=== PATIENT | male | born 1950 | race Caucasian/White ===

== ENCOUNTER 2020-08-14 12:46 | Inpatient (IN) | payer MEDICARE ==
[~2020-08-14] VITALS: Ht 185.4 cm; Wt 71.2 kg
[2020-08-14 16:14] LABS: HEMATOCRIT. 49.9 % (42.0-52.0); MEAN CORPUSCULAR HEMOGLOBIN 29.6 pg (28.0-32.0); MEAN CORPUSCULAR VOLUME 86.6 fL (80.0-94.0); PLATELET 154 x1000/uL (130-400); RED BLOOD CELL COUNT 5.77 mill/uL (4.7-6.1); RED CELL DISTRIBUTION WIDTH 14.8 % (11.6-14.6)
[2020-08-14 16:20] LABS: CHLORIDE 108 mEq/L (98-107)
[2020-08-14 16:23] LABS: INR 1.1
[2020-08-14] MEDS ORDERED: CLONIDINE 0.1MG TABLET PO ONE (16:30)
[2020-08-14 16:35] LABS: CLARITY URINE CLOUDY (CLEAR); COLOR URINE YELLOW (YELLOW); KETONES URINE TRACE (NEGATIVE); LEUKOCYTE ESTERASE URINE TRACE (NEGATIVE); NITRITE URINE NEGATIVE (NEGATIVE); OCCULT BLOOD URINE TRACE (NEGATIVE); PROTEIN URINE 2+ (NEGATIVE); SPECIFIC GRAVITY URINE 1.024 (1.005-1.030)
[2020-08-14 17:03] LABS: *AMPHETAMINES SCREEN URINE NEGATIVE (NEGATIVE); *BARBITURATES SCREEN URINE NEGATIVE (NEGATIVE); *BENZODIAZEPINES SCREEN URINE NEGATIVE (NEGATIVE); *COCAINE SCREEN URINE NEGATIVE (NEGATIVE); METHADONE URINE SCREEN NEGATIVE (NEGATIVE); OPIATES URINE SCREEN NEGATIVE (NEGATIVE)
[2020-08-14 17:04] LABS: CANNABINOID URINE SCREEN PRESUMTIVE POSITIVE (NEGATIVE); PHENCYCLIDINE URINE SCREEN NEGATIVE (NEGATIVE)
[2020-08-14 17:15] LABS: PLATELET ESTIMATE NORMAL
[2020-08-14] MEDS ORDERED: FUROSEMIDE 20MG/2ML VIAL IVP ONE (17:15)
[2020-08-14] MEDS ORDERED: CEFTRIAXONE 1 G PREMIX 50 ML IV ONE (17:15)
[2020-08-14 21:30] VITALS: BP 157/99
[2020-08-14] MEDS ORDERED: DIPHENHYDRAMINE 50MG/ML VIAL IV PRN (21:30)
[2020-08-14] MEDS ORDERED: AMLODIPINE 10MG TABLET PO SCH (21:30)
[2020-08-14] MEDS ORDERED: DOCUSATE SODIUM 100MG CAPSULE PO PRN (21:30)
[2020-08-14] MEDS ORDERED: ONDANSETRON HCL 4MG/2ML INJ IV PRN (21:30)
[2020-08-14] MEDS ORDERED: ACETAMINOPHEN 650MG/20.3ML UDC GT PRN ×2 (21:30)
[2020-08-14] MEDS ORDERED: MAGNESIUM/ALUMINUM HYDROXIDE/SIMETHICONE 30ML UDC PO PRN (21:30)
[2020-08-14] MEDS ORDERED: ACETAMINOPHEN 650MG SUPP PR PRN ×2 (21:30)
[2020-08-14] MEDS ORDERED: ACETAMINOPHEN 325MG TABLET PO PRN ×2 (21:30)
[2020-08-14] MEDS: ENOXAPARIN 40MG/0.4ML SYR SUBCUT SCH (23:07)
[2020-08-14] MEDS: AMLODIPINE 10MG TABLET PO SCH (23:47)
[2020-08-15] VITALS (9 sets, daily range): BP systolic 125–191; BP diastolic 79–105
[2020-08-15 06:01] LABS: CHLORIDE 107 mEq/L (98-107)
[2020-08-15 06:08] LABS: LDL CHOLESTEROL 108 mg/dL (5-100)
[2020-08-15 06:10] LABS: HDL CHOLESTEROL 57 mg/dL (40-59)
[2020-08-15 06:12] LABS: BASOPHILS % 0.9 % (0.0-2.0); EOSINOPHILS % 0.5 % (0.0-5.0); HEMATOCRIT. 49.7 % (42.0-52.0); HEMOGLOBIN. 17.1 g/dL (14.0-18.0); LYMPHOCYTES % 15.6 % (20.0-50.0); MEAN CORPUSCULAR HEMOGLOBIN 29.9 pg (28.0-32.0); MEAN CORPUSCULAR VOLUME 86.6 fL (80.0-94.0); MEAN PLATELET VOLUME 9.4 fl (7.4-10.4); MONOCYTES % 6.9 % (2.0-8.0); NEUTROPHILS % 76.1 % (40.0-76.0); PLATELET 147 x1000/uL (130-400); RED BLOOD CELL COUNT 5.73 mill/uL (4.7-6.1); RED CELL DISTRIBUTION WIDTH 15.2 % (11.6-14.6)
[2020-08-15 07:20] LABS: T4 FREE 1.25 ng/dL (0.76-1.46)
[2020-08-15] MEDS ORDERED: AMLODIPINE 10MG TABLET PO SCH (09:00)
[2020-08-15] MEDS: ASPIRIN 81MG EC TABLET PO SCH (09:05)
[2020-08-15] MEDS: LISINOPRIL 20MG TABLET PO SCH (09:05)
[2020-08-15] MEDS: AMLODIPINE 10MG TABLET PO SCH (09:06)
[2020-08-15] MEDS: FUROSEMIDE 40MG TABLET PO SCH (09:07)
[2020-08-15] MEDS: NICOTINE 14MG PATCH TD SCH (09:07)
[2020-08-15] MEDS ORDERED: POTASSIUM CHLORIDE 20MEQ TABLET SR PO NR (10:45)
[2020-08-15] MEDS ORDERED: CEFTRIAXONE 1,000 MG in DEXTROSE 5% WATER 50 ML IV SCH (17:00)
[2020-08-15] MEDS: CEFTRIAXONE 1,000 MG in DEXTROSE 5% WATER 50 ML IV SCH (18:50)
[2020-08-15] MEDS: ENOXAPARIN 40MG/0.4ML SYR SUBCUT SCH (20:42)
[2020-08-16] VITALS (8 sets, daily range): BP systolic 121–169; BP diastolic 79–113
[2020-08-16 00:58] LABS: CREATINE KINASE MB FRACTION 2.1 ng/mL (0.5-3.6)
[2020-08-16 06:23] LABS: BASOPHILS % 0.7 % (0.0-2.0); EOSINOPHILS % 1.6 % (0.0-5.0); HEMATOCRIT. 52.1 % (42.0-52.0); HEMOGLOBIN. 17.7 g/dL (14.0-18.0); MEAN CORPUSCULAR HEMOGLOBIN 29.7 pg (28.0-32.0); MEAN CORPUSCULAR VOLUME 87.6 fL (80.0-94.0); MEAN PLATELET VOLUME 9.5 fl (7.4-10.4); MONOCYTES % 7.2 % (2.0-8.0); NEUTROPHILS % 70.5 % (40.0-76.0); PLATELET 159 x1000/uL (130-400); RED BLOOD CELL COUNT 5.95 mill/uL (4.7-6.1); RED CELL DISTRIBUTION WIDTH 15.1 % (11.6-14.6)
[2020-08-16 06:29] LABS: CHLORIDE 105 mEq/L (98-107)
[2020-08-16 06:38] LABS: CREATINE KINASE 231 IU/L (39-308)
[2020-08-16] MEDS: LISINOPRIL 20MG TABLET PO SCH (09:00)
[2020-08-16] MEDS: ASPIRIN 81MG EC TABLET PO SCH (09:00)
[2020-08-16] MEDS: AMLODIPINE 10MG TABLET PO SCH (09:00)
[2020-08-16] MEDS: FUROSEMIDE 40MG TABLET PO SCH (09:00)
[2020-08-16 09:04] LABS: VITAMIN B12 SERUM 932 pg/mL (211-911)
[2020-08-16] MEDS: NICOTINE 14MG PATCH TD SCH (09:27)
[2020-08-16] MEDS ORDERED: POTASSIUM CHLORIDE 20MEQ TABLET SR PO NR (12:15)
[2020-08-16] MEDS ORDERED: POTASSIUM CHLORIDE 20MEQ TABLET SR PO ONE (12:30)
[2020-08-16] MEDS: CEFTRIAXONE 1,000 MG in DEXTROSE 5% WATER 50 ML IV SCH (18:47)
[2020-08-16] MEDS: CARVEDILOL 3.125 MG TABLET PO SCH (20:28)
[2020-08-16] MEDS: ENOXAPARIN 40MG/0.4ML SYR SUBCUT SCH (20:28)
[2020-08-16] MEDS: METHYLPREDNISOLONE SOD SUCC 40 MG/ML VIAL IV SCH (22:10)
[2020-08-17] VITALS (10 sets, daily range): BP systolic 129–196; BP diastolic 83–127
[2020-08-17] MEDS: CLONIDINE 0.1MG TABLET PO PRN ×3 (00:28→23:39)
[2020-08-17] MEDS: ALBUTEROL (0.083%) 2.5MG/3ML NEB HHN SCH ×4 (01:43→21:22)
[2020-08-17] MEDS: METHYLPREDNISOLONE SOD SUCC 40 MG/ML VIAL IV SCH ×3 (06:34→22:04)
[2020-08-17] MEDS ORDERED: REGADENOSON 0.4 MG/5 ML IV NR (07:30)
[2020-08-17] MEDS ORDERED: REGADENOSON 0.4 MG/5 ML IV ONE (10:13)
[2020-08-17] MEDS: ASPIRIN 81MG EC TABLET PO SCH (12:16)
[2020-08-17] MEDS: NICOTINE 14MG PATCH TD SCH (12:16)
[2020-08-17] MEDS: LISINOPRIL 20MG TABLET PO SCH (12:17)
[2020-08-17] MEDS: FUROSEMIDE 40MG TABLET PO SCH (12:17)
[2020-08-17] MEDS: CARVEDILOL 3.125 MG TABLET PO SCH ×2 (12:17→20:23)
[2020-08-17] MEDS: BUDESONIDE 0.5MG/2ML NEB HHN SCH ×2 (15:10→21:22)
[2020-08-17] MEDS ORDERED: PULM50 HHN (18:44)
[2020-08-17] MEDS ORDERED: NICO-681 TD (18:44)
[2020-08-17] MEDS ORDERED: LISI-604 PO (18:44)
[2020-08-17] MEDS ORDERED: FURO40TA5 PO (18:44)
[2020-08-17] MEDS ORDERED: COR3 PO (18:44)
[2020-08-17] MEDS ORDERED: ALBU2.5V13 HHN (18:44)
[2020-08-17] MEDS ORDERED: DOCU-150 PO (18:44)
[2020-08-17] MEDS ORDERED: ASPI-1158 PO (18:44)
[2020-08-17] MEDS: CEFTRIAXONE 1,000 MG in DEXTROSE 5% WATER 50 ML IV SCH (18:46)
[2020-08-17] MEDS: ENOXAPARIN 40MG/0.4ML SYR SUBCUT SCH (20:22)
[2020-08-17] MEDS: AMLODIPINE 2.5MG TABLET PO SCH (20:49)
[2020-08-17] MEDS ORDERED: ATORVASTATIN CALCIUM 10MG TABLET PO SCH (21:00)
[2020-08-17] MEDS ORDERED: AMLO2.5T45 PO (22:39)
[2020-08-17] MEDS ORDERED: ATOR10TA PO (22:39)
[2020-08-18 00:28] VITALS: BP 164/98
[2020-08-18] MEDS: ALBUTEROL (0.083%) 2.5MG/3ML NEB HHN SCH ×2 (01:56→08:23)
[2020-08-18 04:00] VITALS: BP 158/83
[2020-08-18] MEDS: METHYLPREDNISOLONE SOD SUCC 40 MG/ML VIAL IV SCH (06:19)
[2020-08-18 07:41] VITALS: BP 158/93
[2020-08-18] MEDS: BUDESONIDE 0.5MG/2ML NEB HHN SCH (08:23)
[2020-08-18] MEDS: ASPIRIN 81MG EC TABLET PO SCH (08:56)
[2020-08-18] MEDS: FUROSEMIDE 40MG TABLET PO SCH (08:56)
[2020-08-18] MEDS: LISINOPRIL 20MG TABLET PO SCH (08:56)
[2020-08-18] MEDS: AMLODIPINE 2.5MG TABLET PO SCH (08:56)
[2020-08-18] MEDS: CARVEDILOL 3.125 MG TABLET PO SCH (08:56)
[2020-08-18] MEDS: NICOTINE 14MG PATCH TD SCH (08:57)
[2020-08-18 12:00] VITALS: BP 164/83
== END 2020-08-18 13:22 | DRG 291 ==
LOC: ER 12:46 → 6WST 17:53 → ENRESERV 20:23 → 6WST 08-15 01:07
PROVIDERS: ADMIT Family Medicine; ATTEND Family Medicine
DX: I11.0 Hypertensive heart disease with heart failure (principal); I63.9 Cerebral infarction, unspecified; I50.21 Acute systolic (congestive) heart failure; E87.2 Acidosis; N39.0 Urinary tract infection, site not specified; K21.9 Gastro-esophageal reflux disease without esophagitis; I42.9 Cardiomyopathy, unspecified; F12.90 Cannabis use, unspecified, uncomplicated; E78.5 Hyperlipidemia, unspecified; E87.6 Hypokalemia; F17.210 Nicotine dependence, cigarettes, uncomplicated; R29.6 Repeated falls; Z86.73 Personal history of transient ischemic attack (TIA), and cerebral infarction without residual deficits; Z91.81 History of falling; M47.816 Spondylosis without myelopathy or radiculopathy, lumbar region; M48.061 Spinal stenosis, lumbar region without neurogenic claudication; M48.02 Spinal stenosis, cervical region; M51.24 Other intervertebral disc displacement, thoracic region; R07.9 Chest pain, unspecified
CPT/HCPCS: 36415; 70551; 71045; 72141; 72146; 72148; 73070; 78452; 80048; 80053; 80061; 80305; 81003; 82550; 82553; 82607; 83036; 83605; 83735; 83880; 84439; 84443; 84484; 85025; 85379; 85651; 87426; 93005; 93017; 93306; 93880; 93970; 97110; 97162; 97166; 97530; 97535; 99285; A9500; C1893; J0696; J1650; J1940; J2785; J2920; J7040; J7060; J7626

== ENCOUNTER 2021-03-15 21:20 | Inpatient (IN) | payer MEDICARE, MEDICAID ==
[~2021-03-15] VITALS: Ht 185.4 cm; Wt 81.6 kg
[~2021-03-15 21:20] MED LIST: ALBU2.5V13 HHN; AMLO2.5T45 PO; ASPI-1406 PO; ATOR10TA PO; COR3 PO; DOCU-150 PO; FURO40TA5 PO; LISI20TA31 PO; NICO-681 TD; PULM50 HHN
[2021-03-15 22:00] VITALS: BP 134/85
[2021-03-15] MEDS: SODIUM CHLORIDE 0.9% 1,000 ML IV SCH (23:15)
[2021-03-16] MEDS: ALBUTEROL (0.083%) 2.5MG/3ML NEB HHN SCH ×4 (03:03→20:30)
[2021-03-16 05:00] VITALS: BP 157/95
[2021-03-16 07:00] LABS: PROTHROMBIN TIME 11.2 sec (9.6-11.0)
[2021-03-16 07:20] LABS: BASOPHILS % 0.6 % (0.0-2.0); EOSINOPHILS % 1.2 % (0.0-5.0); HEMATOCRIT. 44.7 % (42.0-52.0); HEMOGLOBIN. 15.5 g/dL (14.0-18.0); LYMPHOCYTES % 20.6 % (20.0-50.0); MEAN CORPUSCULAR HEMOGLOBIN 29.7 pg (28.0-32.0); MEAN PLATELET VOLUME 9.3 fl (7.4-10.4); MONOCYTES % 8.8 % (2.0-8.0); NEUTROPHILS % 68.8 % (40.0-76.0); PLATELET 147 x1000/uL (130-400); RED CELL DISTRIBUTION WIDTH 15.5 % (11.6-14.6)
[2021-03-16 07:33] LABS: CHLORIDE 107 mEq/L (98-107)
[2021-03-16 08:00] VITALS: BP 164/94
[2021-03-16] MEDS: BUDESONIDE 0.5MG/2ML NEB HHN SCH ×2 (08:06→20:30)
[2021-03-16] MEDS: ASPIRIN 81MG EC TABLET PO SCH (08:39)
[2021-03-16] MEDS: AMLODIPINE 2.5MG TABLET PO SCH (08:39)
[2021-03-16] MEDS: CARVEDILOL 3.125 MG TABLET PO SCH ×2 (08:39→21:53)
[2021-03-16] MEDS: LISINOPRIL 20MG TABLET PO SCH (08:40)
[2021-03-16] MEDS: FUROSEMIDE 40MG TABLET PO SCH (08:40)
[2021-03-16] MEDS: NICOTINE 14MG PATCH TD SCH (08:42)
[2021-03-16 12:00] VITALS: BP 148/94
[2021-03-16 20:00] VITALS: BP 180/105
[2021-03-16] MEDS: ATORVASTATIN CALCIUM 10MG TABLET PO SCH (20:40)
[2021-03-16] MEDS: CLONIDINE 0.1MG TABLET PO PRN (20:41)
[2021-03-17] VITALS: BP 155/90
[2021-03-17] MEDS: DEXAMETHASONE 4MG/ML 1ML VIAL IV SCH ×4 (00:32→17:09)
[2021-03-17] MEDS: ALBUTEROL (0.083%) 2.5MG/3ML NEB HHN SCH ×4 (02:24→23:11)
[2021-03-17] MEDS: CLONIDINE 0.1MG TABLET PO PRN ×2 (04:57→20:48)
[2021-03-17 05:23] VITALS: BP 163/92
[2021-03-17 08:00] VITALS: BP 160/98
[2021-03-17] MEDS: CARVEDILOL 3.125 MG TABLET PO SCH ×2 (09:09→20:48)
[2021-03-17] MEDS: LISINOPRIL 20MG TABLET PO SCH (09:10)
[2021-03-17] MEDS: ASPIRIN 81MG EC TABLET PO SCH (09:10)
[2021-03-17] MEDS: AMLODIPINE 2.5MG TABLET PO SCH (09:10)
[2021-03-17] MEDS: FUROSEMIDE 40MG TABLET PO SCH (09:10)
[2021-03-17] MEDS: BUDESONIDE 0.5MG/2ML NEB HHN SCH ×3 (09:18→23:12)
[2021-03-17 12:00] VITALS: BP 150/88
[2021-03-17] MEDS: NICOTINE 14MG PATCH TD SCH (12:02)
[2021-03-17] MEDS: SODIUM CHLORIDE 0.9% 1,000 ML IV SCH ×2 (12:02→12:11)
[2021-03-17 20:00] VITALS: BP 169/94
[2021-03-17 20:32] LABS: HEMATOCRIT. 47.9 % (42.0-52.0); HEMOGLOBIN. 16.4 g/dL (14.0-18.0); MEAN CORPUSCULAR HEMOGLOBIN 29.3 pg (28.0-32.0); MEAN CORPUSCULAR VOLUME 85.4 fL (80.0-94.0); MEAN PLATELET VOLUME 9.1 fl (7.4-10.4); PLATELET 182 x1000/uL (130-400); RED BLOOD CELL COUNT 5.61 mill/uL (4.7-6.1); RED CELL DISTRIBUTION WIDTH 15.4 % (11.6-14.6)
[2021-03-17 20:47] LABS: CHLORIDE 105 mEq/L (98-107)
[2021-03-17] MEDS: ATORVASTATIN CALCIUM 10MG TABLET PO SCH (20:48)
[2021-03-17 21:05] LABS: PLATELET ESTIMATE NORMAL
[2021-03-17] MEDS: CYCLOBENZAPRINE 10MG TABLET PO SCH (22:41)
[2021-03-18] VITALS: BP 154/89
[2021-03-18] MEDS: DEXAMETHASONE 4MG/ML 1ML VIAL IV SCH ×5 (00:10→23:40)
[2021-03-18] MEDS: SODIUM CHLORIDE 0.9% 1,000 ML IV SCH ×2 (00:18→18:26)
[2021-03-18] MEDS: ALBUTEROL (0.083%) 2.5MG/3ML NEB HHN SCH ×4 (02:45→21:07)
[2021-03-18 04:00] VITALS: BP 174/95
[2021-03-18] MEDS: CLONIDINE 0.1MG TABLET PO PRN (05:28)
[2021-03-18] MEDS: CYCLOBENZAPRINE 10MG TABLET PO SCH ×3 (05:29→21:08)
[2021-03-18 08:00] VITALS: BP 152/83
[2021-03-18] MEDS: BUDESONIDE 0.5MG/2ML NEB HHN SCH ×2 (09:01→21:07)
[2021-03-18] MEDS: CARVEDILOL 3.125 MG TABLET PO SCH ×2 (09:52→21:08)
[2021-03-18] MEDS: LISINOPRIL 20MG TABLET PO SCH (09:52)
[2021-03-18] MEDS: NICOTINE 14MG PATCH TD SCH (09:53)
[2021-03-18] MEDS: FUROSEMIDE 40MG TABLET PO SCH (09:53)
[2021-03-18] MEDS: ASPIRIN 81MG EC TABLET PO SCH (09:53)
[2021-03-18] MEDS: AMLODIPINE 2.5MG TABLET PO SCH (09:53)
[2021-03-18 12:00] VITALS: BP 127/82
[2021-03-18 16:00] VITALS: BP 157/85
[2021-03-18 20:00] VITALS: BP 154/95
[2021-03-18] MEDS: DOCUSATE SODIUM 100MG CAPSULE PO PRN (21:08)
[2021-03-18] MEDS: ATORVASTATIN CALCIUM 10MG TABLET PO SCH (21:15)
[2021-03-19] VITALS: BP 171/93
[2021-03-19] MEDS: ALBUTEROL (0.083%) 2.5MG/3ML NEB HHN SCH ×4 (02:35→21:31)
[2021-03-19 04:00] VITALS: BP 158/98
[2021-03-19] MEDS: CLONIDINE 0.1MG TABLET PO PRN ×2 (06:05→15:43)
[2021-03-19] MEDS: CYCLOBENZAPRINE 10MG TABLET PO SCH ×3 (06:05→21:24)
[2021-03-19] MEDS: DEXAMETHASONE 4MG/ML 1ML VIAL IV SCH ×3 (06:05→18:54)
[2021-03-19 08:00] VITALS: BP 177/97
[2021-03-19] MEDS: AMLODIPINE 2.5MG TABLET PO SCH (08:39)
[2021-03-19] MEDS: LISINOPRIL 20MG TABLET PO SCH (08:39)
[2021-03-19] MEDS: CARVEDILOL 3.125 MG TABLET PO SCH ×2 (08:40→21:24)
[2021-03-19] MEDS: ASPIRIN 81MG EC TABLET PO SCH (08:40)
[2021-03-19] MEDS: NICOTINE 14MG PATCH TD SCH (08:40)
[2021-03-19] MEDS: FUROSEMIDE 40MG TABLET PO SCH (08:40)
[2021-03-19] MEDS: DOCUSATE SODIUM 100MG CAPSULE PO PRN (11:17)
[2021-03-19] MEDS ORDERED: DEXJ4 IV (11:49)
[2021-03-19] MEDS ORDERED: METH4TAB3 MT (11:49)
[2021-03-19 12:00] VITALS: BP 183/93
[2021-03-19 16:00] VITALS: BP 176/98
[2021-03-19] MEDS ORDERED: SODIUM CHLORIDE 0.9% IV ONE (18:15)
[2021-03-19] MEDS ORDERED: HYDRALAZINE IV ONE (18:15)
[2021-03-19] MEDS ORDERED: HYDRALAZINE 10 MG in SODIUM CHLORIDE 0.9% 49.5 ML IV NR (18:30)
[2021-03-19 20:00] VITALS: BP 181/98
[2021-03-19] MEDS ORDERED: AMLODIPINE 10MG TABLET PO SCH (21:00)
[2021-03-19] MEDS ORDERED: BENAZEPRIL 10MG TABLET PO SCH (21:00)
[2021-03-19] MEDS: ATORVASTATIN CALCIUM 10MG TABLET PO SCH (21:23)
== END 2021-03-19 23:38 | DRG 552 ==
LOC: 6EST 21:20
PROVIDERS: ADMIT Family Medicine; ATTEND Family Medicine
DX: M48.061 Spinal stenosis, lumbar region without neurogenic claudication (principal); I10 Essential (primary) hypertension; E78.5 Hyperlipidemia, unspecified; J44.9 Chronic obstructive pulmonary disease, unspecified; Z72.0 Tobacco use; Z79.82 Long term (current) use of aspirin
CPT/HCPCS: 36415; 72141; 72148; 80048; 80053; 85025; 85651; 94640; 97116; 97162; 97166; 97530; J0360; J1100; J7030; J7626

== ENCOUNTER → 2024-08-05 | Outpatient (CLI) | payer MEDICARE, MEDICAID ==
[~2024-08-05] MED LIST changes: +ACET-2708 PO; -ALBU2.5V13 HHN; -AMLO2.5T45 PO; +AMLO5TAB88 PO; -ATOR10TA PO; +ATOR10TA69 PO; +CARV12.545 PO; +CLON0.1T PO; -COR3 PO; +DULO60CA64 PO; +GABA-532 PO; +IPRA3AMP9 HHN; +LIDO700A30 TP; -LISI20TA31 PO; +METF750T46 PO; +METO-539 PO; -NICO-681 TD; -PULM50 HHN; +TOPUD MT; +humalog; +insulin; +losartan; +tramadol
== END | disposition home or self-care (01) ==
LOC: RAD 09:45
PROVIDERS: ATTEND Internal Medicine Critical Care Medicine
DX: J44.9 Chronic obstructive pulmonary disease, unspecified (principal); R06.02 Shortness of breath
CPT/HCPCS: 71046